=== PATIENT | male | born 1975 | race Two or more races ===

== ENCOUNTER 2024-01-28 05:49 | Day surgery (SDC) | payer OTHER ==
[2024-01-28] MEDS ORDERED: DIPHENHYDRAMINE HCL 50 MG/ML VIAL 1ML IV ONE (08:00)
[2024-01-28] MEDS ORDERED: MIDAZOLAM HCL/PF 5 MG/ML VIAL IV ONE (08:00)
[2024-01-28] MEDS ORDERED: MEPERIDINE HCL/PF 50 MG/ML VIAL IV ONE (08:00)
[2024-01-28] MEDS ORDERED: MIDAZOLAM HCL 2 MG/2 ML VIAL IV ONE (08:00)
== END 2024-01-28 10:20 | disposition home or self-care (01) ==
LOC: AMB-ENDOS 05:49
PROVIDERS: ATTEND Surgery
DX: K29.00 Acute gastritis without bleeding (principal); K44.9 Diaphragmatic hernia without obstruction or gangrene; R10.13 Epigastric pain; E66.09 Other obesity due to excess calories